=== PATIENT | male | born 1975 | race American Indian/Alaskan Native ===

== ENCOUNTER 2018-04-16 15:03 | Emergency (ER) | payer SELFPAY ==
[2018-04-16 15:25] VITALS: BP 148/79
[2018-04-16] MEDS ORDERED: NORCO 5/325 PO ONE (20:08)
--- NOTE | 2018-04-16 20:42 | Emergency Department Report ---
ED Upper Extremity Inj HPI - General Chief Complaint: Extremity Injury, Upper Stated Complaint: WRIST PAIN Time Seen by Provider: 04/16/18 20:06 Source: patient Mode of arrival: Ambulatory Limitations: No Limitations - History of Present Illness Initial Comments: Patient's a 42-year-old -[place] male presents for left wrist pain states arm was caught in door industrial door impacted left wrist complains of 510 pain and swelling pain exacerbated by movement palpation there is associated tingling lacerations or abrasions no bleeding no deformity. Complaint: Injury to:: left Onset/Timin -: hour(s) Other Extremity Injury: Wrist: Left Other Injuries: none Handedness: right Place: other (store ) Severity scale (0 -10): 4 Improves With: none Worsens With: movement of extremity Context: direct blow Associated Symptoms: other (pain swelling tingling) - Related Data Previous Rx's Medication Instructions Recorded Last Taken Type Cyclobenzaprine [Flexeril] 10 mg PO BID PRN #20 tablet 04/16/18 Unknown Rx Naproxen [Naprosyn] 500 mg PO BID PRN #30 tablet 04/16/18 Unknown Rx Allergies Allergy/AdvReac Type Severity Reaction Status Date / Time No Known Allergies Allergy Unverified 04/16/18 15:21 ED Review of Systems ROS: Stated complaint: WRIST PAIN Other details as noted in HPI Constitutional: denies: chills, fever Eyes: denies: eye pain, eye discharge, vision change ENT: denies: ear pain, throat pain Respiratory: denies: cough, shortness of breath, wheezing Cardiovascular: denies: chest pain, palpitations Endocrine: no symptoms reported Gastrointestinal: denies: abdominal pain, nausea, diarrhea Genitourinary: denies: urgency, dysuria Musculoskeletal: joint swelling, myalgia. denies: back pain, arthralgia Skin: denies: rash, lesions Neurological: denies: headache, weakness, paresthesias Psychiatric: denies: anxiety, depression Hematological/Lymphatic: denies: easy bleeding, easy bruising ED Past Medical Hx - Past Medical History Previous Medical History?: No - Surgical History Past Surgical History?: No - Social History Smoking Status: Never Smoker Substance Use Type: None - Medications Home Medications: Home Medications Medication Instructions Recorded Confirmed Last Taken Type Cyclobenzaprine [Flexeril] 10 mg PO BID PRN #20 tablet 04/16/18 Unknown Rx Naproxen [Naprosyn] 500 mg PO BID PRN #30 tablet 04/16/18 Unknown Rx ED Physical Exam - General Limitations: No Limitations General appearance: alert, in no apparent distress - Head Head exam: Present: atraumatic, normocephalic - Eye Eye exam: Present: normal appearance - ENT ENT exam: Present: mucous membranes moist - Neck Neck exam: Present: normal inspection - Respiratory Respiratory exam: Present: normal lung sounds bilaterally. Absent: respiratory distress - Cardiovascular Cardiovascular Exam: Present: regular rate, normal rhythm. Absent: systolic murmur, diastolic murmur, rubs, gallop - GI/Abdominal GI/Abdominal exam: Present: soft, normal bowel sounds - Rectal Rectal exam: Present: deferred - Extremities Exam Extremities exam: Present: tenderness (left dorsal wrist ), normal capillary refill, joint swelling. 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 Absent: laceration, ecchymosis, deformity, crepidus, dislocation, erythema, amputation, nail avulsion, subungual hematoma Neuro motor exam: Present: wrist extension intact, thumb opposition intact, thumb IP flexion intact, thumb adduction intact, fingers 2-5 abduction intact Neurosensory exam: Present: 2-point discrimination, radial nerve intact, ulnar nerve intact, median nerve intact Vascular: Present: normal capillary refill, radial pulse, brachial pulse, ulnar pulse. Absent: vascular compromise, Pallo, pulse deficit radial art, pulse deficit ulnar art, pulse deficit brachial art - Back Exam Back exam: Present: normal inspection, full ROM. Absent: tenderness - Neurological Exam Neurological exam: Present: alert, oriented X3, CN II-XII intact, normal gait, reflexes normal - Psychiatric Psychiatric exam: Present: normal affect, normal mood - Skin Skin exam: Present: warm, dry, intact, normal color. Absent: rash ED Course Vital Signs 04/16/18 15:22 Temperature 98.5 F Pulse Rate 87 Respiratory 16 Rate Blood Pressure 148/79 O2 Sat by Pulse 98 Oximetry ED Medical Decision Making - Radiology Data no fracture no soft tissue abnormality - Medical Decision Making This is a simple wrist strain x-rays negative no fracture no soft tissue abdnormality plan NSAIDs for progress more wrist exercises Rice therapy follow with PCP in 2-3 days patient verbalizes understanding and signed will be discharged home in stable condition at this time, splint check complete spacing is appropriate pt given care instruction for velcro wrist splint. Critical care attestation.: If time is entered above; I have spent that time in minutes in the direct care of this critically ill patient, excluding procedure time. ED Disposition Clinical Impression: Left wrist sprain Qualifiers: Encounter type: initial encounter Qualified Code(s): S63.502A - Unspecified sprain of left wrist, initial encounter Disposition: TO HOME OR SELFCARE Is pt being admited?: No Does the pt Need Aspirin: No Condition: Good Instructions: Wrist Sprain (ED) Prescriptions: Cyclobenzaprine [Flexeril] 10 mg PO BID PRN #20 tablet PRN Reason: Muscle Spasm Naproxen [Naprosyn] 500 mg PO BID PRN #30 tablet PRN Reason: Pain Referrals: PRIMARY CARE, [Primary Care Provider] - 3-5 Days Forms: Work/School Release Form(ED) Time of Disposition: 20:46
--- NOTE | 2018-04-16 20:49 | XRay Report ---
FINAL REPORT EXAM: XR WRIST 3+V LT HISTORY: wrist pain blunt trauma TECHNIQUE: AP, lateral, and oblique views of the left wrist PRIORS: None. FINDINGS: No evidence of acute fracture or dislocation is seen. The soft tissues are unremarkable with no soft tissue swelling or radiopaque foreign bodies. Joint spaces are maintained. IMPRESSION: No acute soft tissue or bony abnormality identified.
== END 2018-04-16 20:50 | disposition home or self-care (01) ==
LOC: ED 15:03
DX: S63.502A Unspecified sprain of left wrist, initial encounter (principal); W22.8XXA Striking against or struck by other objects, initial encounter; Y93.89 Activity, other specified; Y92.89 Other specified places as the place of occurrence of the external cause; Y99.8 Other external cause status